=== PATIENT | female | born 1990 | race Two or more races ===

== ENCOUNTER 2024-03-08 16:53 | Emergency (ER) | payer MEDICAID, OTHER ==
[~2024-03-08] VITALS: Ht 167.6 cm; Wt 108.0 kg
[2024-03-08 21:32] LABS: Urine Bacteria FEW /hpf (None Seen); Urine Blood 1+ /uL (Negative); Urine Clarity Turbid (Clear); Urine Color Yellow (Yellow); Urine Mucus FEW (None Seen); Urine Protein, UAD TRACE (Negative); Urine Specific Gravity 1.023 (1.001-1.035); Urine Urobilinogen 2 mg/dL (Negative); Urine WBC 3 /hpf (0 - 5); Urine pH 5.5 (5.0-9.0)
[2024-03-09] MEDS ORDERED: LACT10SO3 PO (02:19)
[2024-03-09] MEDS ORDERED: GLYC2SUP PR (02:19)
[2024-03-09 02:40] VITALS: BP 118/70; TEMP 98.5
[2024-03-09 02:48] VITALS: PULSE 89; RESP 20; O2SAT 95
== END 2024-03-09 02:51 | disposition home or self-care (01) ==
LOC: ER 16:53
DX: K59.09 Other constipation (principal); Z88.8 Allergy status to other drugs, medicaments and biological substances; Z88.2 Allergy status to sulfonamides
CPT/HCPCS: 74176; 81001; 81025

== ENCOUNTER 2024-04-02 10:29 | Emergency (ER) | payer MEDICAID ==
[~2024-04-02] VITALS: Ht 167.6 cm; Wt 105.8 kg
[~2024-04-02 10:29] MED LIST: GLYC2SUP PR; LACT10SO3 PO
[2024-04-02] MEDS: MORPHINE SULFATE 4 MG/ML SYR/VIAL IM ONE (12:16)
[2024-04-02] MEDS ORDERED: HYDR-4902 PO (12:23)
[2024-04-02] MEDS ORDERED: TRAM50TA2 PO (12:24)
[2024-04-02] MEDS ORDERED: ACET-1881 PO (12:24)
[2024-04-02 13:12] VITALS: BP 111/71; PULSE 82; RESP 16; TEMP 98; O2SAT 99
[2024-04-03] MEDS ORDERED: HYDR-4902 PO (10:28)
== END 2024-04-02 13:20 | disposition home or self-care (01) ==
LOC: ER 10:29
DX: S42.214A Unspecified nondisplaced fracture of surgical neck of right humerus, initial encounter for closed fracture (principal); Z88.2 Allergy status to sulfonamides; Z88.6 Allergy status to analgesic agent; V80.010A Animal-rider injured by fall from or being thrown from horse in noncollision accident, initial encounter; Y93.01 Activity, walking, marching and hiking; Y92.89 Other specified places as the place of occurrence of the external cause; Y99.8 Other external cause status
CPT/HCPCS: 73030; 96372; 99285; J2270

== ENCOUNTER 2024-04-03 08:45 | Emergency (ER) | payer MEDICAID ==
[~2024-04-03] VITALS: Ht 167.6 cm; Wt 104.0 kg
[~2024-04-03 08:45] MED LIST changes: +ACET-1881 PO; +HYDR-4902 PO; +TRAM50TA2 PO
[2024-04-03] MEDS: HYDROcodone-ACET 5/325MG TAB PO ONE (09:09)
[2024-04-03 09:28] VITALS: BP 109/71; PULSE 70; RESP 20; TEMP 97.6; O2SAT 100
[2024-04-03] MEDS ORDERED: HYDR-4902 PO (10:28)
== END 2024-04-03 10:43 | disposition home or self-care (01) ==
LOC: ER 08:45
DX: S42.201D Unspecified fracture of upper end of right humerus, subsequent encounter for fracture with routine healing (principal); Z88.2 Allergy status to sulfonamides; Z88.6 Allergy status to analgesic agent; X58.XXXD Exposure to other specified factors, subsequent encounter
CPT/HCPCS: 73060